=== PATIENT | female | born 1985 | race Two or more races ===

== ENCOUNTER 2016-12-01 09:46 | Emergency (ER) | payer SELFPAY ==
[~2016-12-01] VITALS: Ht 162.6 cm; Wt 52.2 kg
[2016-12-01] MEDS ORDERED: LEVOTHYROXINE25 MCG ORAL (09:54)
--- NOTE | 2016-12-01 10:20 | Emergency Room Report ---
History of Present Illness General Chief Complaint: Upper Respiratory Illness Source: Patient Present Illness HPI 31-year-old female no significant past medical history presenting with 2 days of subjective fever and sore throat. Patient complains of sore throat, worse with eating but has been able to eat and drink despite pain. Also complaining of subjective fevers. Patient states that after the fever she broke out with mild rash on face and left arm. Slightly itchy but not painful. Denies any shortness of breath, tongue swelling lip swelling Allergies: Coded Allergies: No Known Allergies (Unverified , 12/01/16) Patient History Past Medical History: see triage record Past Surgical History: none Pertinent Family History: none Last Menstrual Period: Current Now: No Reviewed Nursing Documentation: PMH: Agreed, PSxH: Agreed Nursing Documentation-PMH Hx Diabetes: No - Hypothyroid Review of Systems All Other Systems: negative except mentioned in HPI Physical Exam Vital Signs Date Time Temp Pulse Resp B/P (MAP) Pulse Ox O2 Delivery O2 Flow Rate FiO2 12/01/16 09:49 98.1 69 16 116/77 100 Room Air Sp02 EP Interpretation: reviewed, normal General Appearance: normal inspection, well appearing, no apparent distress, alert, GCS 15, non-toxic Head: normocephalic, atraumatic Eyes: bilateral eye normal inspection, bilateral eye PERRL, bilateral eye EOMI ENT: normal voice, moist mucus membranes, other - Posterior pharynx with mild/ moderate erythema, no vesicles, no exudates, no tonsillar enlargement, uvula is midline Neck: normal inspection, full range of motion, supple Respiratory: normal inspection, lungs clear, normal breath sounds, no respiratory distress, no retraction, no wheezing, speaking full sentences, chest symmetrical Cardiovascular #1: normal inspection, regular rate, rhythm, no edema, normal capillary refill Cardiovascular #2: 2+ radial (R), 2+ radial (L) Gastrointestinal: normal inspection, non tender, soft, non-distended, no guarding Musculoskeletal: normal inspection, back normal, normal range of motion, non- tender Neurologic: normal inspection, alert, oriented x3, responsive, motor strength/ tone normal, sensory intact, normal gait, speech normal Psychiatric: normal inspection, judgement/insight normal, memory normal Skin: normal inspection, normal color, warm/dry, well hydrated, normal turgor, other - Nonspecific nontender blanching erythematous rash on right face, nontender Medical Decision Making Diagnostic Impression: Primary Impression: Viral pharyngitis ER Course 31-year-old female with sore throat DDX: viral vs. infectious mononucleosis vs. bacterial pharyngitis vs. allergies Other serious causes such as STRIPPER COLOR / RPA / deep space neck infection history/physical most consistent with viral pharyngitis Plan: Motrin, supportive care. ER course: Patient remains stable in ED. Pt states improvement of pain with motrin. Disposition: Patient will be discharged to home. Patient will follow up with primary care doctor within 5 days. Strict return precautions discussed with patient such as worsening throat pain/swelling, dysphagia, high fever or chills, shortness of breath, abdominal pain, which may indicate severe illness. Patient verbalized understanding and agreed with plan. Please note that this Emergency Department Report was dictated using [employer] machine operator technology software, occasionally this can lead to erroneous entry secondary to interpretation by the dictation equipment. Last Vital Signs Date Time Temp Pulse Resp B/P (MAP) Pulse Ox O2 Delivery O2 Flow Rate FiO2 12/01/16 09:49 98.1 69 16 116/77 100 Room Air Disposition: HOME, SELF-CARE Condition: Improved Kalyan Ruby M.D. Dec 01, 2016 10:20
[2016-12-01 10:33] VITALS: BP_SYST 116; BP_SYST 119; BP_DIAS 75; BP_DIAS 77
== END 2016-12-01 10:35 | disposition home or self-care (01) ==
LOC: EMR 10:25
DX: J02.8 Acute pharyngitis due to other specified organisms (principal); B97.89 Other viral agents as the cause of diseases classified elsewhere; E03.9 Hypothyroidism, unspecified
CPT/HCPCS: 99283